=== PATIENT | male | born 2000 | race Two or more races ===

== ENCOUNTER 2020-07-07 04:10 | Emergency (ER) | payer SELFPAY ==
[~2020-07-07] VITALS: Ht 180.3 cm; Wt 91.0 kg
[2020-07-07 04:18] VITALS: BP 136/88
== END 2020-07-07 05:11 | disposition left against medical advice (07) ==
LOC: ER 04:10
DX: R11.10 Vomiting, unspecified (principal); Z53.21 Procedure and treatment not carried out due to patient leaving prior to being seen by health care provider